=== PATIENT | male | born 1955 | race Caucasian/White ===

== ENCOUNTER 2020-12-01 13:49 | Emergency (ER) | payer BC ==
[~2020-12-01] VITALS: Ht 177.8 cm; Wt 81.6 kg
[2020-12-01] MEDS ORDERED: IBUPROFEN 600 MG TABLET PO ONE (14:30)
[2020-12-01] MEDS ORDERED: IBUPROFEN 600 MG TABLET ONE (14:46)
[2020-12-01] MEDS ORDERED: FAMO-132 PO (15:01)
[2020-12-01] MEDS ORDERED: IBUP-1955 PO (15:01)
--- NOTE | 2020-12-01 15:22 | NUR ---
Patient discharged to home in stable condition. Written and verbal after care instructions given. Patient verbalizes understanding of instructions. Stressed follow up or return to ER for worsening s/s.pt walks in steady gait.
== END 2020-12-01 15:25 | disposition home or self-care (01) ==
LOC: ER 13:49
DX: M79.631 Pain in right forearm (principal); M79.641 Pain in right hand; M25.521 Pain in right elbow; Z87.11 Personal history of peptic ulcer disease; R03.0 Elevated blood-pressure reading, without diagnosis of hypertension
CPT/HCPCS: 73080; 73090; 73110; A4663